=== PATIENT | female | born 1945 | race Caucasian/White ===

== ENCOUNTER 2017-02-19 14:56 | Outpatient (CLI) ==
[2017-02-19 15:10] LABS: BILIRUBIN,URINE Negative (NEGATIVE); KETONES,URINE Negative (NEGATIVE); LEUKOCYTE ESTERASE ,URINE 2+ (NEGATIVE); NITRITE,URINE Positive (NEGATIVE); PROTEIN,URINE Negative (NEGATIVE); URINE, BLOOD Trace-intact (NEGATIVE)
[2017-02-19 15:13] LABS: ADD URINE MICROSCOPIC YES
[2017-02-19 15:19] LABS: BACTERIA,URINE 1+ (NOT PRESENT)
== END 2017-02-19 14:57 | disposition home or self-care (01) ==
LOC: NONPT 14:56
PROVIDERS: ATTEND Family Medicine
DX: Z46.6 Encounter for fitting and adjustment of urinary device (principal); N39.0 Urinary tract infection, site not specified; N13.9 Obstructive and reflux uropathy, unspecified
CPT/HCPCS: 81001; 87086; 87186

== ENCOUNTER 2017-03-19 15:05 | Outpatient (CLI) ==
--- NOTE | 2017-03-19 15:33 | DI ---
EXAM: Two views of the chest. History: Cough. Findings: Heart size is upper limits of normal. Basilar lung infiltrates. No appreciable pleural fluid and no pneumothorax. Osteopenia. No acute osseous abnormalities. Impression: Basilar lung infiltrates suspicious for pneumonia.
== END 2017-03-19 15:06 | disposition home or self-care (01) ==
LOC: RAD 15:05
PROVIDERS: ATTEND Family Medicine
DX: R05 Cough (principal)

== ENCOUNTER 2017-04-04 14:13 | Outpatient (CLI) ==
[2017-04-04 14:43] LABS: BILIRUBIN,URINE Negative (NEGATIVE); KETONES,URINE Negative (NEGATIVE); LEUKOCYTE ESTERASE ,URINE 2+ (NEGATIVE); NITRITE,URINE Negative (NEGATIVE); PH,URINE 5.5 (5-9); PROTEIN,URINE Trace (NEGATIVE); URINE, BLOOD 1+ (NEGATIVE)
[2017-04-04 14:44] LABS: ADD URINE MICROSCOPIC YES
[2017-04-04 14:50] LABS: BACTERIA,URINE TRACE (NOT PRESENT)
== END 2017-04-04 14:14 | disposition home or self-care (01) ==
LOC: NONPT 14:13
PROVIDERS: ATTEND Family Medicine
DX: N39.0 Urinary tract infection, site not specified (principal)
CPT/HCPCS: 81001; 87086